=== PATIENT | male | born 1980 | race Two or more races ===

== ENCOUNTER 2018-09-22 07:10 | Emergency (ER) | payer SELFPAY ==
[~2018-09-22] VITALS: Ht 167.6 cm; Wt 67.0 kg
[2018-09-22] MEDS ORDERED: ACETAMINOPHEN 325MG TABLET PO ONE (09:45)
[2018-09-22] MEDS ORDERED: TETANUS, DIPHTHERIA, PERTUSSIS VAC/PF 0.5ML (>7YR OLD) IM ONE (10:00)
[2018-09-22 11:33] VITALS: BP 128/76
== END 2018-09-22 11:37 | disposition home or self-care (01) ==
LOC: ER 07:43
DX: S80.212A Abrasion, left knee, initial encounter (principal); S40.212A Abrasion of left shoulder, initial encounter; S50.312A Abrasion of left elbow, initial encounter; V23.4XXA Motorcycle driver injured in collision with car, pick-up truck or van in traffic accident, initial encounter; Y93.55 Activity, bike riding; Y92.89 Other specified places as the place of occurrence of the external cause; Y99.8 Other external cause status
CPT/HCPCS: 73030; 73080; 73560; 90471; 90715; 99283